=== PATIENT | female | born 1980 ===

== ENCOUNTER 2019-01-03 05:45 | Inpatient (IN) ==
[2019-01-03] MEDS ORDERED: DIAZEPAM 5 MG TABLET PO ONE (06:47)
[2019-01-03] MEDS ORDERED: GABAPENTIN 400 MG CAPSULE PO ONE (06:47)
[2019-01-03] MEDS ORDERED: ACETAMINOPHEN 500 MG TABLET PO ONE (06:47)
[2019-01-03] MEDS ORDERED: LACTATED RINGERS 1,000 ML IV SCH (07:00)
[2019-01-03] MEDS ORDERED: BUPIVACAINE 0.5% 50 ML VIAL ONE (07:03)
[2019-01-03] MEDS ORDERED: EPINEPHrine 1 MG/ML VIAL ONE (07:04)
[2019-01-03 07:34] LABS: Apearance,Urine Slightly Hazy (Clear); Bilirubin,Urine Negative (Negative); Blood, Urine Negative (Negative); Glucose,Urine (UA) Negative (Negative); Ketones,Urine 5 mg/dL (Negative); Mucus,Urine Many /LPF (Occasional); Nitrite,Urine Negative (Negative); Protein,Urine Negative; RBC,Urine 2 /HPF (0-4); Squamous Epithelial Cell,Urine Many /HPF (0-10); Urine Color Yellow (Yellow); WBC,Urine 3 /HPF (0-6)
[2019-01-03] MEDS ORDERED: DIAZEPAM 5 MG TABLET ONE (08:02)
[2019-01-03] MEDS ORDERED: ACETAMINOPHEN 500 MG TABLET ONE (08:02)
[2019-01-03] MEDS ORDERED: GABAPENTIN 400 MG CAPSULE ONE (08:02)
[2019-01-03] MEDS ORDERED: ceFAZolin 1,000 MG VIAL ONE (08:02)
[2019-01-03] MEDS ORDERED: ceFAZolin 1,000 MG in SYRINGE 1 EACH IV ONE (08:40)
[2019-01-03 08:49] LABS: HIV Antigen/Antibody Result Nonreactive (Nonreactive)
[2019-01-03] MEDS ORDERED: MAGNESIUM HYDROXIDE SUSP 30 ML UDCUP PO PRN (12:06)
[2019-01-03] MEDS ORDERED: BENZOCAINE/MENTHOL LOZENGE 18/BOX PO PRN (12:06)
[2019-01-03] MEDS ORDERED: ACETAMINOPHEN 325 MG TABLET PO PRN (12:06)
[2019-01-03] MEDS ORDERED: BISACODYL 10 MG SUPP RECTAL PRN (12:06)
[2019-01-03] MEDS ORDERED: ONDANSETRON 4 MG/2 ML VIAL IV PRN ×2 (12:06→12:48)
[2019-01-03] MEDS ORDERED: KETOROLAC 30 MG/1 ML VIAL ONE (12:23)
[2019-01-03] MEDS ORDERED: NEOSTIGMINE 10 MG/10 ML VIAL ONE (12:23)
[2019-01-03] MEDS ORDERED: ONDANSETRON 4 MG/2 ML VIAL ONE ×2 (12:23→12:46)
[2019-01-03] MEDS ORDERED: PROPOFOL 200 MG/20 ML VIAL IV ONE (12:23)
[2019-01-03] MEDS ORDERED: SEVOFLURANE 1 UNIT/15 MINUTE INH ONE (12:23)
[2019-01-03] MEDS ORDERED: LACTATED RINGERS 1,000 ML IV ONE (12:23)
[2019-01-03] MEDS ORDERED: ROCURONIUM 100 MG/10 ML VIAL IV ONE (12:23)
[2019-01-03] MEDS ORDERED: MIDAZOLAM 2 MG/2 ML VIAL ONE (12:23)
[2019-01-03] MEDS ORDERED: GLYCOPYRROLATE 0.4 MG/2 ML VIAL ONE (12:23)
[2019-01-03 12:38] LABS: Apearance,Urine CLEAR (Clear); Bacteria,Urine Occasional /HPF (Few); Bilirubin,Urine Negative (Negative); Blood, Urine Negative (Negative); Glucose,Urine (UA) Negative (Negative); Ketones,Urine Negative (Negative); Mucus,Urine Many /LPF (Occasional); Nitrite,Urine Negative (Negative); Protein,Urine Negative; RBC,Urine <1 /HPF (0-4); Squamous Epithelial Cell,Urine Occasional /HPF (0-10); Urine Color Yellow (Yellow); Urine Specific Gravity 1.025 (1.001-1.035)
[2019-01-03] MEDS ORDERED: HYDROmorphone 2 MG/1 ML VIAL ONE (12:46)
[2019-01-03] MEDS ORDERED: HYDROmorphone 2 MG/1 ML VIAL IV PRN ×2 (12:48→13:48)
[2019-01-03] MEDS: LACTATED RINGERS 1,000 ML IV SCH ×2 (13:58→21:55)
[2019-01-03] MEDS ORDERED: PROMETHAZINE 25 MG/1 ML VIAL IM PRN (15:32)
[2019-01-03] MEDS: ceFAZolin 1,000 MG in SYRINGE 1 EACH IV SCH (18:38)
[2019-01-03 19:12] LABS: Basophils % 0.3 % (0.0-0.8); Eosinophils # 0.1 10*3/uL (0.0-0.87); Eosinophils % 0.8 % (0.00-10.9); Hematocrit 34.5 VOL% (35.7-47.0); Hemoglobin 11.2 GM/DL (12.0-16.0); Immature Granulocytes % 0.4 %; Immature Granulocytes Absolute 0.04 #; Lymphocytes # 1.1 10*3/uL (1.4-4.0); Lymphocytes % 9.9 % (21.3-54.2); Mean Corpuscular HGB Conc 32.5 GM/DL (32-36); Mean Corpuscular Volume 87.1 FL (87-102); Mean Platelet Volume 12.7 FL (9.6-12.0); Monocytes % 4.7 % (1.7-12.7); Neutrophils % 83.9 % (38.7-73.9); Platelet Count 92 T/CUMM (130-400); Red Blood Count 3.96 MC/CUMM (3.8-5.5); Red Cell Distribution Width 12.2 % (9.3-17.3); White Blood Count 10.6 T/CUMM (4-12)
[2019-01-03 20:28] LABS: Eosinophils 1 % (0-10); Lymphocytes 9 % (20-55); Macrocytosis Slight; Platelet Estimate Decreased; Segmented Neutrophils 86 % (50-85); Total Cells Counted 100
[2019-01-03] MEDS: KETOROLAC 30 MG/1 ML VIAL IV PRN (20:30)
[2019-01-04] MEDS: ceFAZolin 1,000 MG in SYRINGE 1 EACH IV SCH (03:43)
[2019-01-04] MEDS: KETOROLAC 30 MG/1 ML VIAL IV PRN (03:47)
[2019-01-04 04:13] LABS: Basophils % 0.1 % (0.0-0.8); Eosinophils # 0.1 10*3/uL (0.0-0.87); Eosinophils % 1.6 % (0.00-10.9); Hematocrit 32.9 VOL% (35.7-47.0); Hemoglobin 10.9 GM/DL (12.0-16.0); Immature Granulocytes % 0.3 %; Immature Granulocytes Absolute 0.02 #; Lymphocytes # 1.1 10*3/uL (1.4-4.0); Lymphocytes % 15.2 % (21.3-54.2); Mean Corpuscular HGB Conc 33.1 GM/DL (32-36); Mean Corpuscular Volume 85.5 FL (87-102); Mean Platelet Volume 12.6 FL (9.6-12.0); Monocytes % 4.9 % (1.7-12.7); Neutrophils % 77.9 % (38.7-73.9); Red Blood Count 3.85 MC/CUMM (3.8-5.5); Red Cell Distribution Width 12.4 % (9.3-17.3); White Blood Count 7.5 T/CUMM (4-12)
[2019-01-04 04:21] LABS: Platelet Count 81 T/CUMM (130-400)
[2019-01-04 04:38] LABS: Hypochromasia 1+; Platelet Estimate Decreased
[2019-01-04] MEDS: METOCLOPRAMIDE 10 MG TABLET PO SCH ×2 (08:47→15:39)
[2019-01-04] MEDS: IBUPROFEN 800 MG TABLET PO PRN (10:50)
[2019-01-04] MEDS: DOCUSATE SODIUM 100 MG CAPSULE PO PRN (20:36)
[2019-01-05] MEDS: IBUPROFEN 800 MG TABLET PO PRN (00:53)
[2019-01-05] MEDS: DOCUSATE SODIUM 100 MG CAPSULE PO PRN (10:11)
[2019-01-05 15:58] VITALS: BP 100/62
[2019-01-05] MEDS: METOCLOPRAMIDE 10 MG TABLET PO SCH (18:53)
== END 2019-01-05 18:45 | disposition home or self-care (01) | DRG 743 ==
LOC: N.OR 05:45 → N.SDSINP 05:46 → N.OB 12:05
PROVIDERS: ADMIT Obstetrics & Gynecology; ATTEND Obstetrics & Gynecology